=== PATIENT | male | born 1945 | race Caucasian/White ===

== ENCOUNTER 2019-07-20 08:48 | Outpatient (CLI) | payer MEDICARE, OTHER, SELFPAY ==
--- NOTE | 2019-07-20 10:00 | IR_ITS ---
WS: [id number] CERVICAL MYELOGRAM HISTORY: cervical pain COMPARISON: 05/14/2018 FLUOROSCOPY TIME: 1.2 minutes. Procedure, risks and complications were explained to the patient. Risks including bleeding, infection , headaches, allergic reaction and seizures. Consent has been obtained. With the patient in prone position the skin over the lumbar region is cleansed with ChloraPrep and an esthetized with lidocaine. 22-gauge spinal needle is inserted into the thecal sac at the appropriate level determined by fluoroscopy. Omnipaque 300; 12 ml is injected slowly under fluoroscopy with no co mplications. Needle bevel is perpendicular to the longitudinal fibers of the dura. Stylet is reinsert ed prior to removal of the needle. Patient tolerated the procedure well. Patient will proceed to CT f or further evaluation. Uncomplicated injection into the thecal sac at the mid lumbar level. Prior fusion hardware at L4-5. L3 anterolisthesis by 3.7 mm on neutral imaging was straightening of the normal lordosis. During flex ion anterolisthesis increases to 5.1 mm. During extension anterolisthesis of 3.0 mm. Severe disc spac e narrowing at C4-5 and C6-7. Endplate osteophytes from C3 to C7. IR/IR myelogram sp cervical [id number] IMPRESSION: 1. Uncomplicated cervical myelogram. 2. Anterolisthesis of C3 by 3.7 mm with mild flexion extension instability. Si milar findings were noted on the prior examination from 05/14/2018. 3. Advanced spondylitic changes throughout the cervical spine. Most significan t degenerative disc disease at C4-5 and C6-7.
[2019-07-20] MEDS: iohexol 300 mg/mL 50 mL Btl INTRATHECA (10:01)
--- NOTE | 2019-07-20 11:30 | CT_ITS ---
WS: [id number] CT CERVICAL MYELOGRAM HISTORY: cervical pain Technique: All CT scans at [facility] use at least one of these dose optimization techniq ues: automated exposure control; mA and/or kV adjustment per patient size (includes targeted exams wh ere dose is matched to clinical indication); or iterative reconstruction. DLP: 2099.51 mGycm COMPARISON: 05/14/2018 Good opacification of thecal sac with contrast. Straightening of the normal cervical lordosis. Craniocervical junction is normal. Narrowing of the pr edental space. C3 anterolisthesis by 2.7 mm. Severe disc space narrowing and desiccation at C4-5 and C6-7. No fractures. Facet joints are normally aligned. C1-C2: No acute findings. C2-C3: Mild osteophytic ridging and a central disc protrusion. No stenosis. C3-C4: Marked facet joint arthritis. Near effacement of ventral CSF due to disc osteophyte disease. M ild encroachment upon the ventral thecal sac with moderate RIGHT and mild LEFT foraminal stenosis. C4-C5: Diffuse osteophytic ridging and facet arthritis. Mild central with moderate bilateral foramina l stenosis. C5-C6: Diffuse osteophytic ridging with mild to moderate central and severe bilateral foraminal steno sis. C6-C7: Diffuse osteophytic ridging. Mild central and bilateral foraminal stenosis. Chronic emphysematous changes at the apices. Calcifications are noted in the soft tissues posterior to the spinous processes. CT/CT cervical spine w con [id number] IMPRESSION: 1. C3 anterolisthesis by 2.7 mm is unchanged. 2. Multilevel degenerative disc disease and osteophytosis. Similar pattern as the prior examination. 3. Moderate central and severe bilateral foraminal stenosis at C5-6 without si gnificant progression. 4. Mild central with moderate bilateral foraminal stenosis at C4-5. No change. 5. Mild central and bilateral foraminal stenosis at C6-7. Moderate RIGHT fernanda inal stenosis at C3-4. No change.
== END 2019-07-20 08:49 | disposition home or self-care (01) ==
LOC: RADWPI 08:54
PROVIDERS: Family Provider Family Medicine; PCP Family Medicine; Visit Provider Specialist
DX: M25.78 Osteophyte, vertebrae (principal); M48.02 Spinal stenosis, cervical region; M53.2X2 Spinal instabilities, cervical region; M50.323 Other cervical disc degeneration at C6-C7 level
CPT/HCPCS: 62302; 72040; 72126; Q9967

== ENCOUNTER 2020-04-19 10:29 | Outpatient (CLI) | payer MEDICARE, OTHER, SELFPAY ==
--- NOTE | 2020-04-19 11:00 | US_ITS ---
WS: [id number] RENAL ULTRASOUND HISTORY: Angiomyolipoma COMPARISON: 09/21/2018 TECHNIQUE: 2-D and color Doppler imaging of the kidney submitted. Right kidney: 12.0 cm x 5.3 cm x 7.0 cm. Normal echogenicity with no hydronephrosis or mass. Left kidney: 11.9 cm x 4.3 cm x 6.4 cm. Normal size kidney. No hydronephrosis. There is a solid mass exophytic from the lower pole measuring 2.7 x 2.3 x 3.0 cm. Small amount of calcification in the wall of the mass. This mass has been present over multiple prior years. No significant increase in size. No increased vascularity is appreciated. There is additional small cyst measuring 1.5 x 1.1 x 1.6 cm in the inferior pole. Aorta: Normal. Urinary Bladder: Normal distention. US/US renal BI* [id number] IMPRESSION: 1. Long-term stability of a solid mass lower pole LEFT kidney now measuring 2. 7 x 2.3 x 3.0 cm. By history this is a known angiomyolipoma. 2. No hydronephrosis or additional solid mass.
== END 2020-04-19 10:30 | disposition home or self-care (01) ==
LOC: US 10:32
PROVIDERS: PCP Family Medicine; Visit Provider Urology
DX: D17.71 Benign lipomatous neoplasm of kidney (principal); N28.89 Other specified disorders of kidney and ureter
CPT/HCPCS: 76770; 81003

== ENCOUNTER → 2021-05-22 12:26 | Outpatient (BNVA) | payer MEDICARE, OTHER, SELFPAY | PROVIDERS: PCP Family Medicine; Visit Provider Internal Medicine Cardiovascular Disease | DX: I25.10 Atherosclerotic heart disease of native coronary artery without angina pectoris (principal); E78.2 Mixed hyperlipidemia; I10 Essential (primary) hypertension | CPT/HCPCS: 99213 ==

== ENCOUNTER → 2021-12-10 10:43 | Outpatient (BNVA) | payer MEDICARE, OTHER, SELFPAY | PROVIDERS: PCP Family Medicine; Visit Provider Internal Medicine Cardiovascular Disease | DX: I25.10 Atherosclerotic heart disease of native coronary artery without angina pectoris (principal); I10 Essential (primary) hypertension | CPT/HCPCS: 99214 ==

== ENCOUNTER 2022-04-22 08:58 | Outpatient (CLI) | payer MEDICARE, OTHER, SELFPAY ==
--- NOTE | 2022-04-22 09:13 | US_ITS ---
WS: [id number] ULTRASOUND RENAL TECHNIQUE: Ultrasound examination of both kidneys. CLINICAL INFORMATION: Angiolipoma of Kidney COMPARISON: CT and ultrasound 2020 FINDINGS: Incidental simple LEFT renal cyst measuring 2.1 x 1.6 x 2.5 cm. Solid mass lower pole LEFT kidney measuring 2.6 x 2.3 x 2.9 CM unchanged. Given history this supposed ly represents angiomyolipoma Prominent prostate measuring 3.1 x 2.5 x 5.3 CM Recommend correlation PSA. RIGHT: Right kidney is normal in size and appearance. Echogenicity: Normal. Cortical thickness: 1.5 cm; Normal. Hydronephrosis: None. Perinephric fluid: None. Right kidney measures: 11.4 cm x 4.1 cm x 6.4 cm. LEFT: Left kidney is normal in size and appearance. Echogenicity: Normal. Cortical thickness: 1.8 cm; Normal. Hydronephrosis: None. Perinephric fluid: None. Left kidney measures: 12.0 cm x 5.1 cm x 5.4 cm. Normal visualized aorta. Normal bladder US/US renal BI* [id number] IMPRESSION: 1. No hydronephrosis in either kidney. 2. Incidental simple LEFT renal cyst measuring 2.1 x 1.6 x 2.5 cm. 3. Solid mass lower pole LEFT kidney is stable. Given history this represents Angiomyolipoma measuring 2.6 x 2.3 x 2.9 CM unchanged. 4. Prominent prostate measuring 3.1 x 2.5 x 5.3 CM. Recommend correlation PSA.
== END 2022-04-22 08:59 | disposition home or self-care (01) ==
LOC: RAD 09:03
PROVIDERS: PCP Family Medicine; Visit Provider Urology
DX: D17.71 Benign lipomatous neoplasm of kidney (principal)
CPT/HCPCS: 76770; 99213

== ENCOUNTER 2022-06-18 07:10 | Outpatient (CLI) | payer MEDICARE, OTHER, SELFPAY ==
[2022-06-18 07:35] VITALS: BMI 28.0
--- NOTE | 2022-06-18 07:36 | NMCV_ITS ---
NM elaine perf SPECT r/s* [id number] Eamon Randolph Age: 77 Gender: M : 1945 Exam Date: 06/18/2022 08:46 Ordering Phys: Jignesh Nolasco Technologist: KAVON Spencer Exam Location: [facility] Indications: ATHEROSCLEROTIC HEART DISEASE STRESS TEST Please see separate stress test report in [facility] for full findings IMAGE PROTOCOL Rest/Stress 1 Lexiscan Day Radiopharmaceutical Dose (mCi) Administration Site Administered by Rest: Tc-99m 10.8 IV KAVON Wade Sestamibi Stress:Tc-99m 32.3 IV KAVON Wade Sestamibi Rest: 18-Jun-2022 60 Discovery 630 Stress: 18-Jun-2022 30 Discovery 630 0.4mg Lexiscan. Images obtained in supine and prone position. SPECT RESULTS Technical Quality: Excellent Raw Data Analysis: Normal Image Corrections: No attenuation or motion correction applied Summed Stress Score: 0 Summed Rest Score: 1 Summed Difference Score: 0 PERFUSION FINDINGS SPECT images demonstrate homogeneous tracer distribution throughout the myocardium. FUNCTIONAL RESULTS (calculated via Gated SPECT) Stress Image LV EF (%): 85 Stress EDV (mL):72 TID: 0.92 Stress ESV (mL):11 FUNCTIONAL FINDINGS: There is normal left ventricular systolic function. IMPRESSIONS 1. Normal myocardial perfusion imaging with no evidence of ischemia 2. LV systolic function is normal Norman Eagle MD (Electronically Signed) Final Date: 18 Jun 2022 11:20 S
--- NOTE | 2022-06-18 07:36 | ECG_ITS ---
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 Interpretive Statements NAME OF STUDY: LEXISCAN SESTAMIBI STRESS TEST INDICATION: [Chest Pain, ] Procedure: At the baseline, the blood pressure was 121/53 mmHg with a heart rate of 71 bpm. The electrocardiogram showed normal sinus rhythm, normal axis with normal ST and T's. The Lexiscan was infused over a period of 20 seconds. A total of 0.4 mg of Lexiscan was infused. The stress phase was continued for a total of 5 minutes. Heart rate was at the end of stress phase was 89 bpm and a blood pressure of 127/63 mmHg. The EKG at the peak infusion revealed normal sinus rhythm with no significant ST-T wave changes. Sestamibi was injected 20 seconds after the Lexiscan infusion. Blood pressure at the end of recovery phase was 123/64 mmHg with a heart rate of 90 bpm. Conclusion: 1. Normal EKG response to Lexiscan infusion 2. No Lexiscan induced chest pain or cardiac arrhythmia. 3. Normal blood pressure and heart rate response. 4. Sestamibi/sestamibi perfusion scan pending; see separate report. Electronically Signed On 07-05-2022 21:00:41 CDT by Norman Eagle M.D. [email or web address]
[2022-06-18] MEDS: regadenoson 0.4 Mg/5 ml Syringe IVP (09:30)
[2022-06-18 09:40] VITALS: BP 123/64; PULSE 92
== END 2022-06-18 07:11 | disposition home or self-care (01) ==
LOC: CDL 07:14
PROVIDERS: PCP Family Medicine; Visit Provider Family Medicine
DX: I25.118 Atherosclerotic heart disease of native coronary artery with other forms of angina pectoris (principal); R68.89 Other general symptoms and signs
CPT/HCPCS: 36415; 78452; 93017; 96374; A9500; J2785

== ENCOUNTER → 2022-08-06 15:02 | Outpatient (BNVA) | payer MEDICARE, OTHER, SELFPAY | PROVIDERS: PCP Family Medicine; Visit Provider Internal Medicine Cardiovascular Disease | DX: R07.89 Other chest pain (principal); I25.10 Atherosclerotic heart disease of native coronary artery without angina pectoris; I10 Essential (primary) hypertension; E78.2 Mixed hyperlipidemia; Z87.891 Personal history of nicotine dependence | CPT/HCPCS: 99214 ==

== ENCOUNTER 2022-08-14 07:12 | Outpatient (CLI) | payer MEDICARE, OTHER, SELFPAY ==
[2022-08-14] VITALS (56 sets, daily range): BP systolic 84–133; BP diastolic 49–78; PULSE 67–85; RESP 12–37; TEMP 36.6–37.1; O2SAT 92–98; BMI 28.2
--- NOTE | 2022-08-14 07:30 | XACV_ITS ---
Exam Room: 2 Ht: 175 cm Wt: 87 kg BSA: 2.07 m2 Gender: Male : 1945 Any Known Allergies: No known allergies Exam Priority: Routine Procedure(s): Procedure Description: Diagnostic procedure Procedure Description: PCI procedure Procedure Description: Drug Eluting Coronary Stent Procedure Description: PTCA Procedure Description: Miscellaneous Procedure Description: ACT Procedure Description: Coronary Angiography Procedure Description: Pressure Wire Diagnostic Cath Status: Elective Diagnostic Findings * 77 yo man with worsening chest pain and shortness of breath in spite of optimal medical management and recent normal stress test. * Left Main has no disease. * Proximal Left Anterior Descending at the take off of first diagonal has a 50% stenosis with JAD-2 flow in rest of the vessel. Mid LAD with patent stent and mild in stent restenosis. Distal and apical segment of the vessel is small. * Circumflex with minor luminal irregularities. * Right Coronary Artery is a medium calibre and dominant vessel with minor luminal irregularities. * Coronary angiography shows right dominance. * Case was discussed and images were reviewed with Dr. Eagle. He took over the case at this time. PCI Status: Elective PCI Indication: Other Interventional Findings * PROCEDURE DETAIL: We engaged left main artery with XB 3.5 guide catheter. IV heparin was administered to maintain anticoagulation. iFR wire was normalized and then we crossed LAD stenosis and was put in distal vessel. iFR value of 0.83 was obtained. iFR pullback was performed that showed a value of 0.85 with step up at proximal to mid LAD stenosis. We then used run-through wire to cross the stenosis. We pre-dilated the stenosis with 3.0x12mm semi-compliant balloon. This is followed by placement of 3.5x15mm Resolute heath ARJUN. At this time final angiogram was performed that showed excellent stent expansion, no residual stenosis and JAD-3 flow. Guidewire and guide catheter were removed. 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 * Proximal to Mid Left Anterior Descendin% stenosis treated with a AB TREK 3.00X12 RX BALLOON, and MDT R HEATH 3.5X15 ARJUN. 0% residual stenosis, JAD: 3 flow. Conclusions 1. Severe proximal to mid LAD stenosis confirmed with iFR value of 0.83. S/P successful revascularization with 1 stent.. 2. Proximal to mid Left Anterior Descending was treated with a Balloon, and Drug Eluting Stent. Recommendations * Dual antiplatelet therapy with aspirin and plavix for atleast 1 year. * High intensity statin therapy. * Outpatient cardiology follow up in 2-4 weeks. Interventional RX Recommendation: PCI w/o planned CABG Diagnostic RX Recommendation: PCI w/o planned CABG Anticoagulation: Heparin Pressures Phase:Rest AO : 82 / 63 ( 73 ) @ 9:41:00 AM 78 / 58 ( 68 ) @ 9:44:00 AM 87 / 63 ( 76 ) @ 9:50:00 AM 103 / 49 ( 72 ) @ 9:52:00 AM 82 / 30 ( 52 ) @ 10:14:00 AM 83 / 29 ( 52 ) @ 10:19:00 AM 77 / 34 ( 50 ) @ 10:27:00 AM Clinical Evaluation EBL: 5mL-10mL Procedural Details Procedure Consent Obtained. Admit Source: Out Patient. Pre-Procedure Time Out. Identified patient by full name and date of as verbalized by the patient/guarantor. Does the consent match the physician's order: Yes. Accurate & Complete Informed Consent: Yes. Inpatient/Outpatient History & Physical on Chart: Yes. If H&P is completed, is and addenduem needed: No; If yes, is the addendum complete: N/A. Visualize and Verify Site with Patient/Guarantor: N/A. Relevant Radiology Images available: Yes. The risks, benefits, and alternatives of sedation and/or procedure were discussed by physician. The patient agrees to continue. Procedure started. [facility] Clinical Fraility Score: 3: Managing Well. 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 Chest Pain Symptom Assessment: Typical Angina Symptoms. Correct patient, site and procedure confirmed by cath team. PERRLA. 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 Lungs clear x 5 lobes. IV Site on Arrival: 20 gauge in the left anticubital. IV Fluids: 0.9% NaCl at KVO. 0 mL infused prior to environmental laboratory technician. Pre Procedural Pulses: bilateral dorsalis pedis was 3+. Pre Procedural Pulses: bilateral posterior tibial was 3+. Pre Procedural Pulses: bilateral radial was 3+. Oxygen started at 2liters/min via nasal canula. right groin was prepped with chloroprep then draped in the usual sterile fashion. right radial was prepped with chloroprep then draped in the usual sterile fashion. Physician notified. Baseline sample Acquired. HR: 86 BPM. Physician arrived. Physician scrubbed in. Immediate Pre-Procedure Time Out. Correct Patient: Yes; Correct Procedure: Yes; Correct Site: Yes; Correct Patient Position: Yes; Correct Supplies: Yes; Dried Flammable Prep: Yes; Blood Products Available: N/A;. Lidocaine 1% infiltrated to the right radial. Arterial access obtained. A 6 sudanese TIG catheter in over wire. Multiple views taken of left coronary artery. Catheter redirected to the RCA. Multiple views taken of right coronary artery. Catheter out. Physician review of cine films. Dr Eagle called for consult. Physician scrubbed in. 6 sudanese XB 3.5 guide catheter was inserted over the wire. IFR wire in through guide cathether. IFR wire out. IFR wire in through guide cathether. IFR spot of Prox LAD 0.83. ACT drawn. Results 271 seconds. Therapeutic limits - pre-heparin administration 90-150 seconds and monitoring heparin during a vascular procedure >250 seconds. Wire out. Runthrough repositioned to distal LAD. Inflation number : 1 A AB TREK 3.00X12 RX BALLOON was prepped and advanced across the Mid LAD , then inflated to 12 ANNA for 0:12 seconds. Inflation number: 2 The AB TREK 3.00X12 RX BALLOON was reinflated across the Mid LAD, to 12 ANNA for 0:13 seconds. Balloon out. Inflation Number : 3 Tom Canales HEATH 3.5X15 ARJUN -Lot Number# [id number] exp date 01/21/24 was prepped and advanced across the Mid LAD. The stent was deployed at 12 ANNA for 0:20 seconds. Stent balloon out over wire. Results checked. wire out. ACT drawn. Results out of range seconds. Therapeutic limits - pre-heparin administration 90-150 seconds and monitoring heparin during a vascular procedure >250 seconds. Guide catheter out. A TR Band was successful obtaining hemostatsis at the Right Radial artery insertion site. Post Procedure: Pulses reassessed and unchanged. PERRLA. 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 No VTE prophylaxis required. Post-op diagnosis: severe Mid LAD stenosis confirmed with IFR, post PCI with 1 stent. Complications: none. Medication's Wasted: Lidocaine 1% = 2 mL. Medication's Wasted: Nitro = 49.7 mg. Medication's Wasted: Heparin = 3000 units. Medication's Wasted: Other = 1 mg versed. Medication's Wasted: Other = 75 mcg fentanyl. Total IV fluids: 270 mL. Estimated blood loss: 5mL-10mL. Responsiveness - Normal response to verbal stimuli; alert and oriented, PERRLA. Airway - Unaffected, no intervention required; spontaneous ventilation. Circulation: W/N/L, pulses unchanged. Nausea/Vomiting: No. Procedure completed. Patient transferred by wheelchair to 1st floor. Vital chart was stopped. Access Site Site: Right Radial artery Sheath Size: 6 Fr Hemostasis Method: TR Band Hemostasis Success: Successful Procedure Medications Start: 8:30 AM Stop: 8:30 AM Medication: Versed 1 mg and Fentanyl 25 mcg Amount: 1 Route: I.V. Start: 8:40 AM Stop: 8:40 AM Medication: Heparin Amount: 5000 units Route: I.V. Start: 8:52 AM Stop: 8:52 AM Medication: Versed Amount: 1 mg Route: I.V. Start: 9:07 AM Stop: 9:07 AM Medication: Versed Amount: 1 mg Route: I.V. Start: 9:08 AM Stop: 9:08 AM Medication: Heparin Amount: 2000 units Route: I.V. Start: 9:21 AM Stop: 9:21 AM Medication: Heparin Amount: 1000 units Route: I.V. Start: 9:21 AM Stop: 9:21 AM Medication: 0.9% Saline Amount: 250 ml Route: I.V. bolus Start: 9:23 AM Stop: 9:23 AM Medication: Nitrogylcerin Amount: 100 mcg Route: I.C. Start: 9:30 AM Stop: 9:30 AM Medication: Nitrogylcerin Amount: 100 mcg Route: I.C. I, the attending physician, have reviewed and verified all procedure medications. Yes, all medications given per verbal order History/Risk Factors Hypertension: Yes Dyslipidemia: Yes Peripheral Arterial Disease (PAD): No Myocardial Infarction (NH): Yes Obesity: No Tobacco Use: Former Prior Interventions PCI: Yes CABG: No Valve Surgery: No Date of PCI: 06/15/2017 Report Signatures Interventional Workflow Finalized by Norman Eagle MD on 08/19/2022 12:20 PM Diagnostic Workflow Finalized by Jessica Olivraes MD on 08/19/2022 11:31 AM
[2022-08-14 07:41] LABS: Basophils # 0.1 10^3/uL (0.0-0.1); Basophils % 0.7 %; Eosinophils # 0.2 10^3/uL (0.0-0.8); Eosinophils % 2.2 %; Hematocrit 47.8 % (42.0-52.0); Hemoglobin 15.4 g/dL (11.7-16.6); Lymphocytes # 2.3 10^3/uL (0.8-4.8); Lymphocytes % 25.5 %; Mean Corpuscular HGB Conc 32.2 g/dL (30.0-36.0); Mean Corpuscular Hemoglobin 30.1 pg (28.0-34.0); Mean Corpuscular Volume 93.4 fl (80-94); Mean Platelet Volume 9.5 fL (7.4-10.4); Monocytes # 0.6 10^3/uL (0.2-0.9); Monocytes % 7.2 %; Neutrophils % 64.1 %; Nucleated Red Blood Cells % 0 %; Platelet Count 253 10^3/cmm (130-400); Red Blood Count 5.12 10^6/uL (4.1-5.3); Red Cell Distribution Width 13.6 % (12.1-15.1); White Blood Count 8.9 10^3/uL (4.0-10.0)
[2022-08-14] MEDS: diphenhydrAMINE 50 mg Capsule PO (07:45)
[2022-08-14 08:03] LABS: Anion Gap 12.2 (5-19); Blood Urea Nitrogen 21 mg/dL (8-23); Calcium 9.3 mg/dL (8.5-10.5); Carbon Dioxide 29 mmol/L (22-29); Chloride 103 mmol/L (98-107); Glucose 89 mg/dL (65-115); Osmolality Calculated 292 mOsm/kg (285-295); Potassium 4.2 mmol/L (3.5-5.1); Sodium 140 mmol/L (136-145)
--- NOTE | 2022-08-14 08:27 | W.PM.OPSUD ---
Surgery/Procedure H&P Update DATE OF PROCEDURE: August 14, 2022 DATE H&P PERFORMED: 08/06/22 PREOP DIAGNOSIS: Worsening chest pain PRIMARY INDICATION FOR PROCEDURE: Worsening chest pain PLANNED PROCEDURE: Operation Date: 08/14/22 08:30 Proposed Procedures p [facility] 78281,25.10, I10, E78.5(Left) - Jessica Olivares MD PATIENT REASSESSED PRIOR TO SEDATION, WITH NO CHANGE NOTED: Yes PHYSICAL EXAM: alert, oriented x 3, clear to auscultation bilaterally and regular rate & rhythm AIRWAY EVAL/ANESTHESIA PLAN: normal airway, ASA III, Monitored Anesthesia, Local Anesthesia, Risks, benefits & alternatives of sedation and/or procedure discussed and Patient agrees to continue as planned
[2022-08-14] MEDS: acetaminophen-codeine 300-30mg Tablet 1 TAB PO (16:50)
[2022-08-14] MEDS: isosorbide mononitrate ER 60 mg Tablet PO (18:23)
[2022-08-14] MEDS: benzonatate 100 mg Capsule PO (21:05)
[2022-08-14] MEDS: nitroglycerin 0.4 mg sublingual Tablet SUBLINGUAL ×2 (22:09→22:14)
[2022-08-14] MEDS: alum-mag-hydroxide-sime 30 mL UDC PO (22:18)
--- NOTE | 2022-08-14 22:26 | PC.NURSE ---
Patient reported having a twinge in his chest that had went away when this nurse rounded on the patient at 2200. At 220, the patient put his call light on and started complaining of chest pain again, rating it 10/10. The patient was rubbing the right side to the center of his chest. This nurse educated the patient that it was normal to feel some soreness throughout his chest and asked the patient if his pain was more right-sided. The patient stated it he could feel the pain throughout his back. Patient was given one nitro tablet. Patient continued to rub his chest and grimace. At the five minute interval, 2213, patient rated his pain 5-6/10, and another nitro tablet was administered. At the five minute interval, 2218, patient stated his pain was down to 2-3/10. Patient was also having some acid reflux symptoms and was burping throughout the duration. Maalox was administered. Patient was educated to report any other chest pain as it happened.
[2022-08-15] VITALS (99 sets, daily range): BP systolic 90–128; BP diastolic 43–76; PULSE 61–91; RESP 9–47; TEMP 36.6; O2SAT 92–99
[2022-08-15] MEDS: atorvastatin 40 mg Tablet 20 MG PO (09:50)
[2022-08-15] MEDS: lisinopril 20 mg Tablet PO (09:50)
[2022-08-15] MEDS: metoprolol succinate ER (24 HR) 50 mg Tablet PO (09:50)
[2022-08-15] MEDS: pantoprazole DR 40 mg Tablet PO (09:50)
[2022-08-15] MEDS: aspirin 81 mg EC Tablet PO (09:51)
[2022-08-15] MEDS: clopidogrel 75 mg Tablet PO (09:51)
[2022-08-15] MEDS: isosorbide mononitrate ER 60 mg Tablet PO (09:51)
[2022-08-15] MEDS: tamsulosin 0.4 mg Capsule PO (09:51)
[2022-08-15] MEDS: ezetimibe 10 mg Tablet PO (09:51)
--- NOTE | 2022-08-15 11:03 | PC.NURSE ---
discharge instructions given and explained to pt and spouse.they verb understanding of instructions.presciption phoned in for daily plavix,as requested by dr holguin.discharged via w/c to exit at this time.spouse to drive pt home
--- NOTE | 2022-08-17 18:05 | PM.DCS ---
Discharge Providers Date of Admission: 08/14/22 Date of Discharge: 2022 Attending Provider at Discharge: Jessica Olivares MD Primary Care Provider: Jignesh Nolasco Reason for Visit Reason for Visit: 25.10, I10, E78.5 Brief History: admitted for elective LHC for chest pain and normal stress test Hospital Course Hospital Course 77-year-old man with past medical history of CAD status post Cypher stent placed in LAD in 2006 for non-ST elevation SD and another LAD drug-eluting stent placement and 75% edge restenosis to previously placed mid LAD stent in May 2017 for persistent chest pain, hypertension, hyperlipidemia and history of tobacco abuse.? On his coronary angiogram in May 2017 he had mid LAD 50% lesion normal left main and luminal irregularities in circumflex and RCA.? He was seen in office with c/o chest pain and SOB requiring NTG. He underwent LHC and ARJUN was placed in Px to mid LAD. He did well post procedure and is eager to go home this morning. Physical Exam Const: COMMON NORMALS: no acute distress, patient oriented x3 and alert GENERAL APPEARANCE: cooperative, comfortable, well kempt and well hydrated HENMT: COMMON NORMALS: hearing grossly normal bilaterally FACE & SINUS: normal facial exam Eye: COMMON NORMALS: EOMs intact bilaterally and no scleral icterus GENERAL EYE: appearance normal, both eyes and all related structures ALIGNMENT: Yes alignment normal Neck/C-Spine: COMMON NORMALS: no lymphadenopathy, supple and no JVD GENERAL: Yes normal visual inspection and Yes trachea midline CAROTIDS: Yes normal carotid upstroke Lymph: LYMPHATIC: no lymphadenopathy noted Chest: COMMONS NORMALS: normal inspection of the chest and normal palpation of entire chest wall CHEST: Yes Symmetrical chest wall rise and No tenderness Resp: COMMON NORMALS: clear to auscultation bilaterally EFFORT & INSPECTION: Yes able to speak in complete sentences, No tachypneic, No respiratory distress, No pursed lip breathing, No labored and No Actively coughing AUSCULTATION: clear to auscultation bilaterally, no crackles, no rales, no rhonchi and no wheezes Cardio: COMMON NORMALS: no JVD, regular rate, regular rhythm, S1 normal heart sound present, S2 normal heart sound present and Peripheral pulses 2+ throughout PALPATION: normal PMI RATE: regular rate RHYTHM: regular rhythm HEART SOUNDS: S1 normal heart sound present, S2 normal heart sound present, no click, no gallops and no murmurs BRUITS: no carotid bruits PERIPHERAL PULSES: Peripheral pulses 2+ throughout, radial pulses present, posterior tibial pulses present and dorsalis pedis present GI: COMMON NORMALS: Soft to palpation AUSCULTATION: Yes normoactive bowel sounds PALPATION: Yes Soft to palpation, No Tenderness to palpation present (GI), No Guarding due to palpation present (GI) and No Rigid due to palpation PERCUSSION: tympanic to percussion Extremity: GENERAL: No clubbing, No cyanosis, Yes edema and No pallor Neuro: COMMON NORMALS: patient oriented x3, CN's II-XII intact bilaterally and no focal motor deficits SENSORIUM/ORIENTATION: Yes alert Psych: COMMON NORMALS: Normal thought process present and speech normal APPEARANCE: Yes well kempt SPEECH: Yes normal speech MOOD & AFFECT: Yes euthymic mood THOUGHT PROCESS: Normal thought process present THOUGHT CONTENT: Yes Normal thought content present Discharge Data Studies Completed and Pending Pending at discharge Category Date Time Status INTERIOR DESIGN PROGRAM CHAIR request for service Routine Exams 08/14/22 07:30 Taken Laboratory Results WBC 8.9 10^3/uL (4.0-10.0) 08/14/22 07:20 RBC 5.12 10^6/uL (4.1-5.3) 08/14/22 07:20 Hgb 15.4 g/dL (11.7-16.6) 08/14/22 07:20 Hct 47.8 % (42.0-52.0) 08/14/22 07:20 MCV 93.4 fl (80-94) 08/14/22 07:20 MCH 30.1 pg (28.0-34.0) 08/14/22 07:20 MCHC 32.2 g/dL (30.0-36.0) 08/14/22 07:20 RDW 13.6 % (12.1-15.1) 08/14/22 07:20 Plt Count 253 10^3/cmm (130-400) 08/14/22 07:20 MPV 9.5 fL (7.4-10.4) 08/14/22 07:20 Neut % (Auto) 64.1 % 08/14/22 07:20 Lymph % (Auto) 25.5 % 08/14/22 07:20 [place] % (Auto) 7.2 % 08/14/22 07:20 Eos % (Auto) 2.2 % 08/14/22 07:20 Baso % (Auto) 0.7 % 08/14/22 07:20 Neut # (Auto) 5.70 10^3/uL (1.8-7.7) 08/14/22 07:20 Lymph # (Auto) 2.3 10^3/uL (0.8-4.8) 08/14/22 07:20 [place] # (Auto) 0.6 10^3/uL (0.2-0.9) 08/14/22 07:20 Eos # (Auto) 0.2 10^3/uL (0.0-0.8) 08/14/22 07:20 Baso # (Auto) 0.1 10^3/uL (0.0-0.1) 08/14/22 07:20 Nucleated RBC % (auto) 0 % 08/14/22 07:20 Nucleated RBCs # 0.0 /100WBC 08/14/22 07:20 Sodium 140 mmol/L (136-145) 08/14/22 07:20 Potassium 4.2 mmol/L (3.5-5.1) 08/14/22 07:20 Chloride 103 mmol/L (98-107) 08/14/22 07:20 Carbon Dioxide 29 mmol/L (22-29) 08/14/22 07:20 Anion Gap 12.2 (5-19) 08/14/22 07:20 BUN 21 mg/dL (8-23) 08/14/22 07:20 Creatinine 0.7 mg/dL (0.7-1.2) 08/14/22 07:20 GFR Calculation Not Reportable 08/14/22 07:20 Glucose 89 mg/dL (65-115) 08/14/22 07:20 Calculated Osmolality 292 mOsm/kg (285-295) 08/14/22 07:20 Calcium 9.3 mg/dL (8.5-10.5) 08/14/22 07:20 Vitals Last Vital Signs Temp 97.9 F 08/15/22 03:50 Pulse 78 08/15/22 10:37 Resp 16 08/15/22 10:37 BP 128/72 08/15/22 10:37 Pulse Ox 99 08/15/22 07:15 O2 Del Method Room Air 08/15/22 03:50 Discharge Plan Discharge Patient Disposition: Home Prescriptions: Continued nitroglycerin [Nitrostat] 0.4 mg tablet, sublingual 0.4 mg SUBLINGUAL Q5M PRN (Reason: Chest Pain) pantoprazole 40 mg tablet,delayed release (DR/EC) 40 mg PO DAILY trazodone 50 mg tablet 50 mg PO DAILY PRN (Reason: Sleep) acetaminophen-codeine 300-60 mg tablet 1 tab PO Q8H PRN (Reason: Pain) tamsulosin [Flomax] 0.4 mg capsule 0.4 mg PO DAILY potassium gluconate 595 mg (99 mg) tablet 595 mg PO DAILY docusate sodium [Dulcolax Stool Softener (dss)] 100 mg capsule 100 mg PO DAILY PRN (Reason: constipation) atorvastatin 20 mg tablet 20 mg PO DAILY benzonatate 100 mg capsule 100 mg PO TID metoprolol succinate 50 mg tablet extended release 24 hr 50 mg PO DAILY lisinopril 20 mg tablet 20 mg PO DAILY ezetimibe [Zetia] 10 mg tablet 10 mg PO DAILY albuterol sulfate 90 mcg/actuation aerosol powdr breath activated 2 inh inhalation Q6H PRN (Reason: Wheezing/SOB) clopidogrel [Plavix] 75 mg tablet 75 mg PO DAILY Qty: 5 0RF Rx Instructions: take 4tabs(300mg) night before and 1tab(75mg) morn of procedure Adult Aspirin Regimen 81 mg tablet,delayed release (DR/EC) 81 mg PO DAILY Qty: 90 3RF Changed isosorbide mononitrate 60 mg tablet extended release 24 hr See Rx Instructions .ROUTE .COMPLEX Qty: 135 2RF Rx Instructions: 60 mg orally, Take 1 tab in morning and 1/2 tab in evening Discharge Orders: Discharge Order (Routine); Ordered 08/15/22 Ordered By: Jessica Olivares Other Ambulatory Orders: Comprehensive Metabolic Panel (Routine) Timeframe: 1 Week Facility: [facility] - Location: Lab - Main Lab Ordered By: Jessica Olivares Lipid Panel (Routine) Timeframe: 1 Week Facility: [facility] - Location: Lab - Main Lab Ordered By: Jessica Olivares Referrals: Patsy Armendariz FNP [Nurse Practitioner] - 08/29/22 10:45 am Jessica Olivares MD [Physician] - (Your Dr. Olivares follow up appointment will be scheduled while you are at your Patsy Greenwood appointment. Thank you.) Diet: Cardiac Activity: Increase activity as tolerated Patient Instructions: Coronary Artery Disease (DC), Chest Pain Stoplight, Post Angiogram Home Care Instructions Activity Restrictions/Additional Instructions: Do not lift anything more than 5 lbs for 1 week. Keep the site dry and clean Take medications as prescribed and follow up as scheduled. Discharge Date/Time: 08/15/22 11:04 Discharge Attestations Time Spent in Discharge Care*: less than 30 min Quality Metrics Clinical Quality Measures [ No reported AMI, CVA or VTE this stay] Coding Level of Care Code Acute Code for Chg Fwd Diagnoses
== END 2022-08-15 11:04 | disposition home or self-care (01) ==
LOC: CCL 07:12 → CSU 10:03
PROVIDERS: Internal Medicine; PCP Family Medicine; Visit Provider Internal Medicine Cardiovascular Disease
DX: R07.9 Chest pain, unspecified (principal); R94.39 Abnormal result of other cardiovascular function study; I10 Essential (primary) hypertension; E78.5 Hyperlipidemia, unspecified; Z87.891 Personal history of nicotine dependence; Z95.5 Presence of coronary angioplasty implant and graft; Z79.02 Long term (current) use of antithrombotics/antiplatelets; Z79.82 Long term (current) use of aspirin; T82.855A Stenosis of coronary artery stent, initial encounter; Y71.2 Prosthetic and other implants, materials and accessory cardiovascular devices associated with adverse incidents; I25.10 Atherosclerotic heart disease of native coronary artery without angina pectoris
CPT/HCPCS: 36415; 80048; 85025; 85347; 93454; 93571; 96361; 96365; 96367; 99152; 99153; C1725; C1769; C1874; C1887; C1894; C9600; J1644; J2250; J3010; J3490; J7030; Q0163; Q9967

== ENCOUNTER → 2022-08-29 10:06 | Outpatient (BNVA) | payer MEDICARE, OTHER, SELFPAY | PROVIDERS: PCP Family Medicine; Visit Provider Nurse Practitioner Family | DX: I25.10 Atherosclerotic heart disease of native coronary artery without angina pectoris (principal); I10 Essential (primary) hypertension; Z87.891 Personal history of nicotine dependence | CPT/HCPCS: 80048; 99214 ==

== ENCOUNTER → 2023-01-20 07:59 | Outpatient (BNVA) | payer MEDICARE, OTHER, SELFPAY | PROVIDERS: PCP Family Medicine; Referring Provider Dermatology; Visit Provider Orthopaedic Surgery | DX: M47.12 Other spondylosis with myelopathy, cervical region (principal); M50.30 Other cervical disc degeneration, unspecified cervical region; Z95.5 Presence of coronary angioplasty implant and graft; Z79.02 Long term (current) use of antithrombotics/antiplatelets; Z79.82 Long term (current) use of aspirin | CPT/HCPCS: 72050; 99204 ==

== ENCOUNTER → 2023-03-27 09:26 | Outpatient (BNVA) | payer MEDICARE, OTHER, SELFPAY | PROVIDERS: PCP Family Medicine; Visit Provider Internal Medicine Cardiovascular Disease | DX: I25.10 Atherosclerotic heart disease of native coronary artery without angina pectoris (principal); I10 Essential (primary) hypertension; E78.2 Mixed hyperlipidemia; I95.9 Hypotension, unspecified; Z98.61 Coronary angioplasty status; Z87.891 Personal history of nicotine dependence | CPT/HCPCS: 99214 ==

== ENCOUNTER → 2023-03-31 12:02 | Outpatient (BNVA) | payer MEDICARE, OTHER, SELFPAY | PROVIDERS: PCP Family Medicine; Visit Provider Orthopaedic Surgery | DX: M47.12 Other spondylosis with myelopathy, cervical region (principal); M48.02 Spinal stenosis, cervical region | CPT/HCPCS: 99214 ==

== ENCOUNTER 2023-04-28 08:09 | Outpatient (CLI) | payer MEDICARE, OTHER, SELFPAY ==
--- NOTE | 2023-04-28 08:11 | CT_ITS ---
WS: [id number] CT CERVICAL MYELOGRAM TECHNIQUE: CT of the cervical spine coronal and sagittal reformatted images post intrathecal administ ration of contrast. CLINICAL INFORMATION: neck pain COMPARISON: CT 07/20/2019 DLP: 186.[address] scans at [facility] use at least one of these dose optimization techniques: automated e xposure control; mA and/or kV adjustment per patient size (includes targeted exams where dose is matc hed to clinical indication); or iterative reconstruction. FINDINGS: Moderate spondylitic changes. Straightening of normal cervical lordosis. Slight anterolisthesis of C3 on C4 measuring 2.2 mm. C2-C3: Disc osteophyte complex with endplate ridging. Mild facet arthropathy. Spinal canal and forame n are patent. C3-C4: Disc osteophyte complex with endplate ridging. Uncovertebral joint hypertrophy. Moderate facet arthropathy. Moderate LEFT and mild RIGHT bony foraminal narrowing. C4-C5: Disc osteophytic ridging. Ankylosis across the disc space. Moderate LEFT and mild RIGHT bony f oraminal narrowing. Spine canal is patent. C5-C6: Disc osteophyte complex with endplate ridging. Uncovertebral joint hypertrophy. Moderate LEFT greater than RIGHT bony foraminal narrowing. Mild facet arthropathy. Slight contact of the cervical c ord. Spinal canal is patent. C6-C7: Complete loss of disc base height. Moderate facet arthropathy. Mild LEFT greater than RIGHT nathaly ny foraminal narrowing. C7-T1: Disc osteophyte complex with endplate ridging. Spinal canal and foramen are patent. Fibrosis in the lung apices. Cavernous carotid calcification. Mastoid air cells are well aerated. Mil d mucosal thickening in the ethmoid air cells with partial opacification. Carotid bulb calcification. IMPRESSION: 1. Straightening of the normal cervical lordosis with moderate spondylitic changes. 2.2 mm anterolis thesis C3 on C4. 2. Complete loss of disc base height at C4-C5 and C6-C7 with bony ankylosis at C4-5 across the disc space. 3. Moderate bony foraminal narrowing worse at LEFT C3-4, LEFT C4-5, bilateral C5-6 worse on the LEFT 4. Moderate facet arthropathy at C3-C4 C4-C5 and C6-C7.
--- NOTE | 2023-04-28 08:11 | CT_ITS ---
WS: [id number] CT THORACIC SPINE MYELOGRAM TECHNIQUE: CT myelogram of the thoracic spine with coronal and sagittal reformatted images. CLINICAL INFORMATION: neck and back pain COMPARISON: MRI 2017 DLP: 554.[address] scans at [facility] use at least one of these dose optimization techniques: automated e xposure control; mA and/or kV adjustment per patient size (includes targeted exams where dose is matc hed to clinical indication); or iterative reconstruction. FINDINGS: Mild thoracic curve. Mild thoracic kyphosis. Mild spondylitic changes thoracic spine. No high-grade c entral canal stenosis. Mild to moderate facet arthropathy lower thoracic spine. No acute appearing co mpression fractures. Mild chronic anterior wedging in the midthoracic spine similar to the prior MRI. Tiny central protrusion T6-T7 with slight contact of the thoracic cord. Tiny RIGHT paracentral protru neda T7-T8 and small central protrusion T8-T9 with slight indentation on the thoracic cord. Mild cent ral canal stenosis T8-T9. Mild RIGHT greater than LEFT T8-T9 bony foraminal narrowing. Mild RIGHT T9-10 bony foraminal narrowin g. Fibrosis in the lung apices. Adrenal glands are normal. Calcified mediastinal and RIGHT hilar lymph n odes. Normal caliber thoracic aorta. IMPRESSION: 1. No high-grade central canal stenosis. No acute appearing compression fractures. 2. Mild central canal stenosis T8-9 with a small central protrusion with slight contact of the thora cic cord. 3. Tiny central protrusion T6-T7 and RIGHT paracentral T7-T8. 4. Mild RIGHT greater than LEFT T8-T9 bony foraminal narrowing. Mild RIGHT T9-10 bony foraminal narr owing.
--- NOTE | 2023-04-28 09:00 | IR_ITS ---
WS: [id number] MYELOGRAM THORACIC AND CERVICAL SPINE Fluoroscopic guided cervical myelogram CLINICAL INFORMATION: neck pain TECHNIQUE: The procedure, including risks, benefits, and complications, were discussed with the patie nt who agreed to proceed. A timeout was performed to confirm correct patient, procedure, and site. Using sterile technique, the patient was prepped and draped in the usual sterile fashion. After admin istration of local anesthesia using 1% preservative-free lidocaine and using fluoroscopic guidance, a 22-gauge spinal needle was advanced into the subarachnoid space at the L2-3 level. Subsequently 13 c c of Omnipaque 240 was administered into the thecal sac. The needle was removed and hemostasis was ac hieved. Subsequently the table was tilted down and contrast flowed freely into the cervical spine. Sp ot fluoroscopic images were obtained. FLUOROSCOPIC TIME: 4min [id number] # of spot films: 3 Spot fluoroscopic images demonstrate pedicle screw fixation L4 and L5. L5 is partially sacralized. Ao rtic calcification. Straightening of the normal cervical lordosis with moderate spondylitic changes. Ankylosis across the C4-C5 and C6-C7 disc spaces. Osteopenia. Mild chronic anterior wedging in the mi dthoracic spine. Please see CT myelogram report for additional detail. IMPRESSION: 1. Uncomplicated thoracic and cervical myelogram. 2. See CT report for anatomic detail.
== END 2023-04-28 08:10 | disposition home or self-care (01) ==
LOC: RAD 08:09
PROVIDERS: PCP Family Medicine; Visit Provider Orthopaedic Surgery
DX: M47.12 Other spondylosis with myelopathy, cervical region (principal); M48.02 Spinal stenosis, cervical region; M48.04 Spinal stenosis, thoracic region; M51.24 Other intervertebral disc displacement, thoracic region
CPT/HCPCS: 62305; 72126; 72129; Q9966

== ENCOUNTER → 2023-05-07 07:27 | Outpatient (BNVA) | payer MEDICARE, OTHER, SELFPAY | PROVIDERS: PCP Family Medicine; Visit Provider Orthopaedic Surgery | DX: M47.12 Other spondylosis with myelopathy, cervical region (principal) | CPT/HCPCS: 99214 ==

== ENCOUNTER → 2023-08-04 10:20 | Outpatient (BNVA) | payer MEDICARE, OTHER, SELFPAY | PROVIDERS: PCP Family Medicine; Visit Provider Orthopaedic Surgery | DX: M47.12 Other spondylosis with myelopathy, cervical region (principal) | CPT/HCPCS: 99212; G0463 ==

== ENCOUNTER → 2023-08-18 12:42 | Outpatient (BNVA) | payer MEDICARE, OTHER, SELFPAY | PROVIDERS: PCP Family Medicine; Visit Provider Internal Medicine Cardiovascular Disease | DX: I25.10 Atherosclerotic heart disease of native coronary artery without angina pectoris (principal); I10 Essential (primary) hypertension; Z98.61 Coronary angioplasty status; E78.2 Mixed hyperlipidemia; Z72.0 Tobacco use | CPT/HCPCS: 99213 ==

== ENCOUNTER → 2024-02-24 09:36 | Outpatient (BNVA) | payer MEDICARE, OTHER, SELFPAY | PROVIDERS: PCP Family Medicine; Visit Provider Nurse Practitioner Family | DX: R07.9 Chest pain, unspecified (principal) | CPT/HCPCS: 93005; 99214 ==

== ENCOUNTER 2024-03-01 09:47 | Outpatient (CLI) | payer MEDICARE, OTHER, SELFPAY ==
--- NOTE | 2024-03-01 10:00 | USCV_ITS ---
Eamon Randolph Age: 79 Gender: M : 1945 Exam Date: 03/01/2024 10:19 Ordering Phys: Barbara Persaud NP Technologist: CT Exam Location: [facility] [place] Indication: cp BP: 123 / 72 HR: 76 Rhythm: Sinus Technical Quality: Adequate MEASUREMENTS (Male / Female) Normal Values 2D ECHO LVOT Diameter 2.0 cm LV Ejection Fraction MOD 4C 56.0 % LV Ejection Fraction MOD 2C 62.1 % LV Ejection Fraction 2C AL 62.7 % LA Diameter 3.2 cm RA Systolic Volume 4C AL 26.8 ml RA Systolic Volume 4C MOD 27.0 ml LA Sys Volume AL 37.9 cm cubed LA Sys Volume Index AL 18.6 cm cubed/m squared Aorta at Sinotubular Diameter 1.8 cm IVC Diameter 1.4 cm M-MODE LA Ao Ratio MM 1.3 AV Cusp Separation MM 1.9 cm DOPPLER AV Peak Velocity 170.0 cm/s LVOT Peak Velocity 99.0 cm/s AV Area Cont Eq vti 1.8 cm squared AV Area Cont Eq pk 1.9 cm squared MV Peak Velocity 85.0 cm/s MV Area PHT 3.0 cm squared Mitral E to A Ratio 0.7 TV Peak Velocity 235.3 cm/s TR Peak Velocity 238.5 cm/s TR Peak Gradient 22.8 mmHg TR Mean Velocity 186.0 cm/s TR Mean Gradient 14.8 mmHg TR Velocity Time Integral 58.8 cm TV Peak E Velocity 64.0 cm/s PV Peak Velocity 97.5 cm/s FINDINGS Left Ventricle Normal left ventricular size, systolic function and wall thickness, with no regional wall motion abnormalities. Left ventricular ejection fraction is estimated at 60 %. Grade I/IV diastolic dysfunction (abnormal relaxation filling pattern), normal to mildly elevated filling pressures. Right Ventricle The right ventricle is normal in size and function. Right Atrium The right atrium is normal in size. Left Atrium The left atrium is normal in size. Mitral Valve Mildly thickened mitral valve. No mitral valve stenosis. Trace mitral valve regurgitation. Aortic Valve Moderate aortic valve calcification. No aortic valve stenosis. Trace aortic valve regurgitation. Tricuspid Valve Mild tricuspid valve regurgitation. Pulmonic Valve Structurally normal pulmonic valve without significant stenosis. There is no pulmonic regurgitation. Pericardium Normal pericardium without effusion. Aorta Normal ascending aorta dimension. IVC The inferior vena cava appears normal. CONCLUSIONS Normal left ventricular size, systolic function and wall thickness, with no regional wall motion abnormalities. Left ventricular ejection fraction is estimated at 60 %. Grade I/IV diastolic dysfunction (abnormal relaxation filling pattern), normal to mildly elevated filling pressures. Mild tricuspid valve regurgitation. There is no pericardial effusion. Right atrial pressure is around 5 mm of mercury. Teri Hannah MD (Electronically Signed) Final Date: 01 March 2024 23:52 S
== END 2024-03-01 09:48 | disposition home or self-care (01) ==
LOC: RAD 09:49
PROVIDERS: PCP Family Medicine; Visit Provider Nurse Practitioner Family
DX: I25.10 Atherosclerotic heart disease of native coronary artery without angina pectoris (principal); I05.9 Rheumatic mitral valve disease, unspecified; I70.0 Atherosclerosis of aorta; I07.1 Rheumatic tricuspid insufficiency; R93.1 Abnormal findings on diagnostic imaging of heart and coronary circulation
CPT/HCPCS: 93306

== ENCOUNTER 2024-03-02 07:07 | Outpatient (CLI) | payer MEDICARE, OTHER, SELFPAY ==
[2024-03-02 07:10] VITALS: BMI 27.3
--- NOTE | 2024-03-02 07:10 | ECG_ITS ---
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 The perfusion scan will be documented separately. DATA: Baseline heart rate was 80 beats per minute. Baseline blood pressure was 138/71 millimeters of mercury. Target heart rate was 140. Maximum heart rate achieved was 107. which was 76 % of the predicted target heart rate. Maximum blood pressure was 138/85 millimeters of mercury. The reason for ending the test was completion of the protocol. The patient did not experience any symptoms. ELECTROCARDIOGRAM: BASELINE: Sinus rhythm. Normal axis. Otherwise, no ST-T changes suggestive of ischemia noted. No arrhythmia noted. EXERCISE: After Lexiscan injection, no ST-T changes suggestive of ischemic noted. No arrhythmia noted. CONCLUSION: Please note due to baseline abnormality of the EKG specificity and sensitivity of the EKG portion of LexiScan MIBI stress test will be low 1. EKG not suggestive of ischemia 2. Lexiscan injection unremarkable. 3. Perfusion scan will be documented separately. Electronically Signed On 03-21-2024 21:57:55 GROUND HAND by CHAITANYA PEARSON [email or web address]
--- NOTE | 2024-03-02 07:11 | NMCV_ITS ---
NM elaine perf SPECT r/s* [id number] Eamon Randolph Age: 79 Gender: M : 1945 Exam Date: 03/02/2024 08:14 Ordering Phys: Barbara Persaud NP Technologist: KAVON Valle Exam Location: [facility] Indications: cp STRESS TEST Please see separate stress test report in [facility] for full findings IMAGE PROTOCOL Rest/Stress 1 Lexiscan Day Radiopharmaceutical Dose (mCi) Administration Site Administered by Rest: Tc-99m 11 IV Arina Quick, LOAD TALLIER Sestamibi Stress:Tc-99m 32.6 IV Arina Girardgle, LOAD TALLIER Sestamibi Rest: 02-Mar-2024 60 Discovery 630 Stress: 02-Mar-2024 30 Discovery 630 0.4mg Lexiscan. Supine position only as patient was unable to lay prone. SPECT RESULTS Technical Quality: Good Raw Data Analysis: Normal Image Corrections: No attenuation or motion correction applied Summed Stress Score: 0 Summed Rest Score: 2 Summed Difference Score: 0 PERFUSION FINDINGS SPECT images demonstrate homogeneous tracer distribution throughout the myocardium. FUNCTIONAL RESULTS (calculated via Gated SPECT) Stress Image LV EF (%): 76 Stress EDV (mL):62 TID: 1.18 Stress ESV (mL):15 FUNCTIONAL FINDINGS: There is normal left ventricular systolic function. IMPRESSIONS Myocardial perfusion imaging is normal and low probability for obstructive coronary artery. Teri Hannah MD (Electronically Signed) Final Date: 03 March 2024 00:37 S
[2024-03-02] MEDS: regadenoson 0.4 Mg/5 ml Syringe IVP (08:42)
[2024-03-02 08:51] VITALS: BP 125/58; PULSE 92
== END 2024-03-02 07:08 | disposition home or self-care (01) ==
PROVIDERS: PCP Family Medicine; Visit Provider Nurse Practitioner Family
DX: R07.9 Chest pain, unspecified (principal)
CPT/HCPCS: 36415; 78452; 93017; 96374; A9500; J2785

== ENCOUNTER → 2024-05-31 12:40 | Outpatient (BNVA) | payer MEDICARE, OTHER, SELFPAY | PROVIDERS: PCP Family Medicine; Visit Provider Internal Medicine Cardiovascular Disease | DX: I25.10 Atherosclerotic heart disease of native coronary artery without angina pectoris (principal); I10 Essential (primary) hypertension; Z98.61 Coronary angioplasty status; F17.200 Nicotine dependence, unspecified, uncomplicated; E78.5 Hyperlipidemia, unspecified; I25.2 Old myocardial infarction | CPT/HCPCS: 99214 ==

== ENCOUNTER → 2024-11-29 14:52 | Outpatient (BNVA) | payer MEDICARE, OTHER, SELFPAY | PROVIDERS: PCP Family Medicine; Visit Provider Internal Medicine Cardiovascular Disease | DX: I25.10 Atherosclerotic heart disease of native coronary artery without angina pectoris (principal); E78.5 Hyperlipidemia, unspecified; I10 Essential (primary) hypertension; I25.2 Old myocardial infarction; Z95.5 Presence of coronary angioplasty implant and graft; F17.200 Nicotine dependence, unspecified, uncomplicated | CPT/HCPCS: 99214 ==

== ENCOUNTER → 2025-01-03 09:43 | Outpatient (BNVA) | payer MEDICARE, OTHER, SELFPAY | PROVIDERS: PCP Family Medicine; Referring Provider Nurse Practitioner Family; Visit Provider Dermatology | DX: Z57.8 Occupational exposure to other risk factors (principal); L82.1 Other seborrheic keratosis; L81.4 Other melanin hyperpigmentation; D48.5 Neoplasm of uncertain behavior of skin; L57.0 Actinic keratosis | CPT/HCPCS: 11102; 17000; 99203 ==